=== PATIENT | female | born 1980 | race Caucasian/White ===

== ENCOUNTER → 2018-01-20 | Outpatient (CLI) | payer MEDICAID ==
--- NOTE | 2018-01-20 14:24 | Diagnostic Imaging Report ---
PROCEDURE: US Non-OB pelvis comp/trans. TECHNIQUE: Multiple real-time grayscale images were obtained of the pelvis in various projections endovaginally. Transabdominal imaging was also performed. INDICATION: Uterine enlargement and right lower quadrant pain. FINDINGS: The uterus measures 5.4 x 4.2 x 2.9 cm. Endometrium is 2 mm in thickness. No uterine mass is detected. Ovaries could not be visualized due to bowel gas. No adnexal mass or free fluid is seen. IMPRESSION: Non-visualized ovaries. The study is otherwise unremarkable. Dictated by: Dictated on workstation # [id number]
== END ==
LOC: RAD 13:05
PROVIDERS: ATTEND Nurse Practitioner
DX: N85.2 Hypertrophy of uterus (principal)
CPT/HCPCS: 76830; 76856